=== PATIENT | female | born 1960 | race Caucasian/White ===

== ENCOUNTER 2017-04-18 08:39 | Day surgery (SDC) | payer BC ==
[2017-04-17 09:52] VITALS: BMI 22.9
[~2017-04-18 08:39] MED LIST: LACTATED RINGERS 1,000 ML IV SCH
[2017-04-18 09:26] VITALS: TEMP 97.9
[2017-04-18] MEDS ORDERED: LIDOCAINE 1% 20 ML VIAL (10MG/ML) FOR IV START INTRADERMA ONE (09:26)
[2017-04-18] MEDS ORDERED: PROPOFOL 10 MG/ML 20 ML VIAL IV ONE (09:57)
[2017-04-18] MEDS ORDERED: LIDOCAINE 1% INJ 10MG/ML (20 ML MDV) ONE (09:57)
--- NOTE | 2017-04-18 10:18 | P.PCN ---
Date of Procedure: 04/18/17 Preoperative Diagnosis: Postoperative Diagnosis: Procedure(s) Performed: BRIEF HISTORY: Patient is a 57-year-old pleasant white female, scheduled for an elective colonoscopy as a part of screening for colorectal neoplasia. PROCEDURE PERFORMED: Colonoscopy with biopsy. PREOPERATIVE DIAGNOSIS: Screening for colon cancer. IV sedation per Anesthesia. PROCEDURE: After informed consent was obtained, the patient, was brought into the endoscopy unit. IV sedation was administered by Anesthesia under continuous monitoring. Digital rectal examination was normal. Initially the Olympus CF- 160 flexible video colonoscope was then inserted in the rectum, gradually advanced into the cecum without any difficulty. Careful examination was performed as the scope was gradually being withdrawn. Ileocecal valve and the appendiceal orifice were visualized and appeared normal. Prep was excellent. Mucosa of the cecum, appeared normal. In the ascending colon there was a 5 mL polyp that was removed by biopsy. Rest of the ascending colon, transverse colon , descending colon, sigmoid colon, and rectum appeared normal. Scattered sigmoid diverticulosis seen. Retroflexion was performed in the rectum and no lesions were seen. The patient tolerated the procedure well. IMPRESSION: 5 mm ascending colon polyp status post removal by biopsy. Scattered sigmoid diverticulosis. RECOMMENDATIONS: Findings of this examination were discussed with the patient as well as a family. She was advised to follow with the biopsy results. If the biopsy shows a tubular adenoma she can have a repeat colonoscopy in 5 years. Implants: Indications for Procedure: Operative Findings: Description of Procedure:
[2017-04-18 10:23] VITALS: RESP 16
[2017-04-18 10:34] VITALS: BP 115/79; PULSE 78
== END 2017-04-18 10:53 | disposition home or self-care (01) ==
LOC: ORWHC2ENDO 08:39
PROVIDERS: ATTEND Internal Medicine Gastroenterology
DX: Z12.11 Encounter for screening for malignant neoplasm of colon (principal); K57.30 Diverticulosis of large intestine without perforation or abscess without bleeding; D12.2 Benign neoplasm of ascending colon; J45.909 Unspecified asthma, uncomplicated; K58.9 Irritable bowel syndrome, unspecified; Z79.3 Long term (current) use of hormonal contraceptives; Z79.899 Other long term (current) drug therapy
CPT/HCPCS: 88305; 45380; J2001; J2704

== ENCOUNTER → 2018-07-23 | Outpatient (CLI) | payer BC ==
--- NOTE | 2018-07-24 14:44 | MM ---
Reason for exam: screening (asymptomatic). Last mammogram was performed 2 years and 9 months ago. History: Took hormonal contraceptives for 21 years. Taking estrogen for 1 year. Physical Findings: A clinical breast exam by your physician is recommended on an annual basis and results should be correlated with mammographic findings. MG Screening Mammo w CAD Bilateral CC and MLO view(s) were taken. Prior study comparison: October 18, 2015, bilateral MG screening mammo w CAD. May 05, 2013, bilateral digital screening mammo w/CAD. The breast tissue is heterogeneously dense. This may lower the sensitivity of mammography. Small asymmetric density posterior left breast just lateral to the retroareolar plane is more defined. Asymmetric density central right CC view also more defined, suspected summation shadow. ASSESSMENT: Incomplete: need additional imaging evaluation, BI-RAD 0 RECOMMENDATION: Special view mammogram of both breasts. If lesion persists on supplemental views, image directed ultrasound is recommended. [facility] will attempt to contact patient to return for supplemental views and ultrasound if indicated.
== END | disposition home or self-care (01) ==
LOC: RADMAMWWP 07:01
PROVIDERS: ATTEND Family Medicine
DX: Z12.31 Encounter for screening mammogram for malignant neoplasm of breast (principal)
CPT/HCPCS: 77067

== ENCOUNTER → 2018-08-05 | Outpatient (CLI) | payer BC ==
--- NOTE | 2018-08-05 13:54 | MM ---
Reason for exam: additional evaluation requested from abnormal screening. Last mammogram was performed less than 1 month ago. History: Took hormonal contraceptives for 21 years. Taking estrogen for 1 year. Physical Findings: Nurse did not find any significant physical abnormalities on exam. MG Work Up Mamm w CAD BILAT Bilateral spot compression CC and LM view(s) were taken. Prior study comparison: July 23, 2018, bilateral MG screening mammo w CAD. October 18, 2015, bilateral MG screening mammo w CAD. The breast tissue is heterogeneously dense. This may lower the sensitivity of mammography. Finding: There is an intermediate concern, suspicious 7 mm equal density (isodense), spiculated irregular mass located 8 cm from the nipple in the left breast. New finding since July 23, 2018 and October 18, 2015. These results were verbally communicated with the patient and result sheet given to the patient on 08/05/18. ASSESSMENT: Incomplete: need additional imaging evaluation, BI-RAD 0 RECOMMENDATION: Ultrasound of the left breast. Follow-up diagnostic mammogram of the right breast in 6 months.
--- NOTE | 2018-08-05 13:56 | USB ---
Reason for exam: additional evaluation requested from abnormal screening. History: Took hormonal contraceptives for 21 years. Taking estrogen for 1 year. US Breast Workup LT Left complete breast ultrasound includes all four quadrants, the retroareolar region and axilla. Finding demonstrates lymph node at axilla. These results were verbally communicated with the patient and result sheet given to the patient on 08/05/18. ASSESSMENT: Suspicious, BI-RAD 4 RECOMMENDATION: Stereotactic core biopsy of the left breast. Called Dr. Antunez with mammographic findings and has scheduled an appointment for the patient for 09/02/18 at 4:[address] Anand. Biopsy scheduled for 08/11/18 at 8:20. PRELIMINARY REPORT CALLED AND FAXED TO DR. ANAND ON 08/05/18.
== END | disposition home or self-care (01) ==
LOC: RADMAMWWP 08:54
PROVIDERS: ATTEND Family Medicine
DX: R92.8 Other abnormal and inconclusive findings on diagnostic imaging of breast (principal)
CPT/HCPCS: 77066

== ENCOUNTER → 2018-08-11 | Day surgery (SDC) | payer BC ==
[2018-08-11 07:40] VITALS: BP 135/83; PULSE 87; RESP 16; TEMP 98; BMI 22.9
--- NOTE | 2018-08-11 14:43 | MM ---
EXAMINATION TYPE: MG discontinued stereo core LT DATE OF EXAM: 08/11/2018 COMPARISON: Mammogram 08/05/2018 CLINICAL HISTORY: Abnormal mammogram Attempt to localize the lesion in the stereotactic unit was unsuccessful. No biopsy performed at this time. IMPRESSION: Unable to localize the abnormality, recommend short interval follow-up mammogram in 3-6 months. No bi opsy performed at this time, case discussed with the patient.
== END | disposition home or self-care (01) ==
LOC: RADMAMWWP 07:21
PROVIDERS: ATTEND Surgery
DX: R92.8 Other abnormal and inconclusive findings on diagnostic imaging of breast (principal); Z91.09 Other allergy status, other than to drugs and biological substances